=== PATIENT | female | born 1965 | race Caucasian/White ===

== ENCOUNTER 2017-12-27 15:10 | Emergency (ER) | payer OTHER ==
[2017-12-27 15:19] VITALS: BP 140/78; PULSE 71; TEMP 98.1; BMI 27.3
--- NOTE | 2017-12-27 15:21 | PDOC ---
Rapid Medical Evaluation Chief Complaint: Pain, Acute Time Seen by Provider: 12/27/17 15:21 Medical Evaluation: Allergies Allergy/AdvReac Type Severity Reaction Status Date / Time acetaminophen [From Percocet] Allergy Verified 12/27/17 15:16 codeine Allergy Verified 12/27/17 15:16 oxycodone HCl [From Percocet] Allergy Verified 12/27/17 15:16 Vital Signs Temp Pulse Resp BP Pulse Ox 98.1 F 71 18 140/78 99 12/27/17 15:16 12/27/17 15:16 12/27/17 15:16 12/27/17 15:16 12/27/17 15:16 I have performed a brief in-person evaluation of this patient. The patient presents with a chief complaint of: 3 days knee pain, denies trauma , has had knee pain but went to PT 3 days ago and pain worsened after Pertinent physical exam findings: tenderness to R posterior knee, limited ROM I have ordered the following: x-ray The patient will proceed to the ED for further evaluation. Discharge Disposition - Diagnosis Left knee pain - Referrals - Patient Instructions - Post Discharge Activity
--- NOTE | 2017-12-27 15:50 | PDOC ---
History of Present Illness - General Chief Complaint: Pain, Acute Stated Complaint: LEG PAIN Time Seen by Provider: 12/27/17 15:21 History Source: Patient Exam Limitations: No Limitations Past History - Travel Traveled outside of the country in the last 30 days: No Close contact w/someone who was outside of country & ill: No - Past Medical History Allergies/Adverse Reactions: Allergies Allergy/AdvReac Type Severity Reaction Status Date / Time acetaminophen [From Percocet] Allergy Verified 12/27/17 15:16 codeine Allergy Verified 12/27/17 15:16 oxycodone HCl [From Percocet] Allergy Verified 12/27/17 15:16 Home Medications: Ambulatory Orders Metoprolol Succinate [Toprol Xl] 50 mg PO DAILY 08/14/15 Aspirin [Adult Aspirin Regimen] 81 mg PO ASDIR 12/27/17 Ibuprofen 800 mg PO TID #30 tablet 12/27/17 COPD: No GI Disorders: Yes (gastritis) Disorders: (kidney infections,stones) HTN: Yes Hypercholesterolemia: Yes - Surgical History Abdominal Surgery: No Appendectomy: Yes - Immunization History Immunization Up to Date: Yes - Suicide/Smoking/Psychosocial Hx Smoking Status: No Smoking History: Never smoked Number of Cigarettes Smoked Daily: 0 Hx Alcohol Use: No Drug/Substance Use Hx: No Substance Use Type: None Hx Substance Use Treatment: No Review of Systems - Review of Systems Able to Perform ROS?: Yes Comments:: 12/27/17 15:49 CONSTITUTIONAL: Absent: fever, chills, diaphoresis, generalized weakness, malaise, loss of appetite HEENT: Absent: rhinorrhea, nasal congestion, throat pain, throat swelling, difficulty swallowing, mouth swelling, ear pain, eye pain, visual Changes CARDIOVASCULAR: Absent: chest pain, loss of consciousness, palpitations, irregular heart rate, peripheral edema RESPIRATORY: Absent: cough, shortness of breath, dyspnea with exertion, orthopnea, wheezing, stridor, hemoptysis GASTROINTESTINAL: Absent: abdominal pain, abdominal distension, nausea, vomiting, diarrhea, constipation, melena, hematochezia GENITOURINARY: Absent: dysuria, frequency, urgency, hesitancy, hematuria, flank pain, genital pain MUSCULOSKELETAL: Absent: myalgia, arthralgia, joint swelling SKIN: Absent: rash, itching, pallor HEMATOLOGIC/IMMUNOLOGIC: Absent: easy bleeding, easy bruising, lymphadenopathy, frequent infections ENDOCRINE: Absent: unexplained weight gain, unexplained weight loss, heat intolerance, cold intolerance NEUROLOGIC: Absent: headache, focal weakness or paresthesias, dizziness, unsteady gait, seizure, mental status changes, bladder or bowel incontinence PSYCHIATRIC: Absent: anxiety, depression, suicidal or homicidal ideation, hallucinations. Is the patient limited American proficient: No *Physical Exam - Vital Signs Last Vital Signs Temp Pulse Resp BP Pulse Ox 98.1 F 71 18 140/78 99 12/27/17 15:16 12/27/17 15:16 12/27/17 15:16 12/27/17 15:16 12/27/17 15:16 - Physical Exam Comments: 12/27/17 15:50 GENERAL: Well developed, well nourished. Awake and alert. No acute distress. HEENT: Normocephalic, atraumatic. PERRLA, EOMI. No conjunctival pallor. Sclera are non- icteric. Moist mucous membranes. Oropharynx is clear. NECK: Supple. Full ROM. No JVD. Carotid pulses 2+ and symmetric, without bruits. No thyromegaly. No lymphadenopathy. CARDIOVASCULAR: Regular rate and rhythm. No murmurs, rubs, or gallops. Distal pulses are 2+ and symmetric. PULMONARY: No evidence of respiratory distress. Lungs clear to auscultation bilaterally. No wheezing, rales or rhonchi. ABDOMINAL: Soft. Non-tender. Non-distended. No rebound or guarding. No organomegaly. Normoactive bowel sounds. MUSCULOSKELETAL Normal range of motion at all joints. No bony deformities or tenderness. No CVA tenderness. EXTREMITIES: No cyanosis. No clubbing. No edema. No calf tenderness. SKIN: Warm and dry. Normal capillary refill. No rashes. No jaundice. NEUROLOGICAL: Alert, awake, appropriate. Cranial nerves 2-12 intact. No deficits to light touch and temperature in face, upper extremities and lower extremities. No motor deficits in the in face, upper extremities and lower extremities. Normoreflexic in the upper and lower extremities. Normal speech. Toes are down- going bilaterally. Gait is normal without ataxia. PSYCHIATRIC: Cooperative. Good eye contact. Appropriate mood and affect. *DC/Admit/Observation/Transfer Diagnosis at time of Disposition: Left knee pain Qualifiers: Chronicity: acute Qualified Code(s): M25.562 - Pain in left knee - Discharge Dispostion Disposition: HOME Condition at time of disposition: Stable Admit: No - Referrals Referrals: Demarcus Hall [Primary Care Provider] - Richie Salazar MD [Staff Physician] - - Patient Instructions Printed Discharge Instructions: DI for Knee Pain Additional Instructions: You have knee pain. Your x-ray did not show any broken bones. I suspect you have a problem with one of your ligaments Please continue to take your tramadol as previously prescribed Take 800mg ibuprofen every 8 hours for the next week. Take this with food Please follow up with Dr. Salazar this week. He is an orthopedist. Return to the ED if you have worsening pain, fevers, increased swelling of the knee, or have any changes in your symptoms. Tienes dolor de rodilla Leonel winnie X no mostraron ningn hueso roto. Sospecho que tienes un problema con sarita de tus ligamentos Por favor contine tomando chavez tramadol segn lo prescrito previamente [employer] 800 mg de ibuprofeno cada 8 horas zaida la prxima semana. Cristiane esto con comida Por favor, siga con el Dr. Salazar esta semana. l es ortopedista. Regrese al departamento de emergencias si tiene un empeoramiento del dolor, fiebre, aumento de la inflamacin de la rodilla o algn cambio en leonel sntomas. - Post Discharge Activity Forms/Work/School Notes: Back to Work
== END 2017-12-27 17:03 | disposition home or self-care (01) ==
LOC: JERFT 15:10
DX: M25.562 Pain in left knee (principal); I10 Essential (primary) hypertension; Z87.442 Personal history of urinary calculi; Z87.19 Personal history of other diseases of the digestive system; Z79.82 Long term (current) use of aspirin
CPT/HCPCS: 73562-TC-LT-FY; 99281-25

== ENCOUNTER 2018-02-01 10:13 | Emergency (ER) | payer OTHER ==
[2018-02-01 10:30] VITALS: BP 142/74; PULSE 85; TEMP 98.2; BMI 28.7
--- NOTE | 2018-02-01 10:36 | PDOC ---
History of Present Illness - General Chief Complaint: Ear Problem Stated Complaint: LT EAR PAIN Time Seen by Provider: 02/01/18 10:35 History Source: Patient Exam Limitations: No Limitations - History of Present Illness Initial Comments: CHIEF COMPLAINT: 52 y/o female here for ear wax impaction of right ear. HISTORY OF PRESENT ILLNESS: Patient was seen by Dr. Hall who gave her a prescription to see an ENT specialist for right ear wax impaction. The patient came here. Denies all other complaints. Vital signs on arrival are within normal limits. REVIEW OF SYSTEMS: GENERAL/CONSTITUTIONAL: No fever/chills. HEAD, EYES, EARS, NOSE AND THROAT: No change in vision. +right ear pain and ear wax impaction. No sore throat. SKIN: No rash or easy bruising. NEUROLOGIC: No headache, vertigo, loss of consciousness, or loss of sensation. PHYSICAL EXAM: GENERAL: The patient is awake, alert, and fully oriented, in no acute distress. HEAD: Normal with no signs of trauma. ENT: Pupils equal, round and reactive to light, extraocular movements intact, sclera anicteric, conjunctiva clear. Cerumen impaction of right ear. NEUROLOGICAL: Normal speech, normal gait. CN II-XII grossly intact. SKIN: Warm, dry, normal turgor, no rashes or lesions noted. Past History - Past Medical History Allergies/Adverse Reactions: Allergies Allergy/AdvReac Type Severity Reaction Status Date / Time acetaminophen [From Percocet] Allergy Verified 02/01/18 10:25 codeine Allergy Verified 02/01/18 10:25 oxycodone HCl [From Percocet] Allergy Verified 02/01/18 10:25 Home Medications: Ambulatory Orders Metoprolol Succinate [Toprol Xl] 50 mg PO DAILY 08/14/15 Aspirin [Adult Aspirin Regimen] 81 mg PO ASDIR 12/27/17 COPD: No GI Disorders: Yes (gastritis) Disorders: (kidney infections,stones) HTN: Yes Hypercholesterolemia: Yes - Surgical History Abdominal Surgery: No Appendectomy: Yes - Immunization History Immunization Up to Date: Yes - Suicide/Smoking/Psychosocial Hx Smoking Status: No Smoking History: Never smoked Number of Cigarettes Smoked Daily: 0 Hx Alcohol Use: No Drug/Substance Use Hx: No Substance Use Type: None Hx Substance Use Treatment: No *Physical Exam - Vital Signs Last Vital Signs Temp Pulse Resp BP Pulse Ox 98.2 F 85 18 142/74 99 02/01/18 10:26 02/01/18 10:26 02/01/18 10:26 02/01/18 10:02/01/18 10:26 Medical Decision Making - Medical Decision Making A/P: 52 y/o female with right ear cerumen impaction. Used hydrogen peroxide to irrigate right ear. Very large piece of wax was removed from right ear on 2nd round of irrigation. Patient immediately felt better but slightly dizzy. She laid down in the bed for about 10 minutes and then felt better. Discharged to home to f/u with Dr. Garcia. Patient instructed to return to the ER with any worsening or concerning symptoms. The patient verbalizes understanding of all instructions, has no further questions and is awaiting discharge. *DC/Admit/Observation/Transfer Diagnosis at time of Disposition: Impacted cerumen of right ear - Discharge Dispostion Disposition: HOME Condition at time of disposition: Improved - Referrals Referrals: Demarcus Hall [Primary Care Provider] - Henry Garcia MD [Staff Physician] - 1 week - Patient Instructions Printed Discharge Instructions: DI for Cerumen Impaction Additional Instructions: Discharge Instructions: -Apply 3-5 drops of over the counter hydrogen peroxide into ears nightly to prevent build up of ear wax -Follow up with Dr. Garcia within 2 weeks for further evaluation -Return to the ER with any worsening or concerning symptoms. Instrucciones de descarga: -Aplicar de 3 a 5 gotas de perxido de hidrgeno sin receta en las orejas cada noche para evitar la acumulacin de cera -Siga con el Dr. Garcia dentro de 2 semanas para pierce evaluacin adicional -Volver a la rosalino de emergencias con cualquier empeoramiento o sntomas. Print Language: NAURUAN - Post Discharge Activity
== END 2018-02-01 11:30 | disposition home or self-care (01) ==
LOC: JERFT 10:13
PROC: 3E1B78Z Irrigation of Ear using Irrigating Substance, Via Natural or Artificial Opening (ICD-10-PCS; principal; 2018-02-01)
PROC: 3E1B78Z Irrigation of Ear using Irrigating Substance, Via Natural or Artificial Opening (ICD-10-PCS; 2018-02-01)
DX: H61.21 Impacted cerumen, right ear (principal); I10 Essential (primary) hypertension
CPT/HCPCS: 69209; 99281-25

== ENCOUNTER 2018-10-04 22:19 | Emergency (ER) | payer OTHER ==
[2018-10-04 22:23] VITALS: BP 124/63; PULSE 92; TEMP 98.6; BMI 27.3
--- NOTE | 2018-10-04 22:57 | PDOC ---
Attending Attestation - HPI HPI: 10/04/18 23:02 The patient is a 53-year-old female with a past medical history significant for HTN, GERD and NIDDM presents to the emergency department with nausea and abdominal bloating. The patient reports at 2:00 pm today she was eating a toast with pineapple juice, when a sudden onset of sharp diffuse abdominal pain presented, followed by an episode of NBNB emesis. The patient reports the abdominal pain is achy and inflamed in quality and is diffused across the abdomen, denies radiation to the chest or neck. The patient reports associated symptoms of dysuria, diarrhea, and subjective fever, denies hematuria, frequency or urgency to urinate. The patient reports a similar pain about 3 months prior. The patient reports her last BM was earlier today. Allergies: codeine and oxycodone HCl Social history: None reported Surgical history: Appendectomy PCP: Dr. Claudia Hall. - Physicial Exam PE: 10/04/18 23:47 GENERAL: Awake, alert, and fully oriented, in no acute distress HEAD: No signs of trauma EYES: PERRLA, EOMI, sclera anicteric, conjunctiva clear ENT: Auricles normal inspection, hearing grossly normal, nares patent, oropharynx clear without exudates. Moist mucosa. NECK: Normal ROM, supple, no lymphadenopathy, JVD, or masses LUNGS: Breath sounds equal, clear to auscultation bilaterally. No wheezes, and no crackles HEART: Regular rate and rhythm, normal S1 and S2, no murmurs, rubs or gallops ABDOMEN: +Central epigastric pain to tenderness. No flank pain. Soft, normoactive bowel sounds. No guarding, no rebound. No masses EXTREMITIES: Normal range of motion, no edema. No clubbing or cyanosis. No cords, erythema, or tenderness NEUROLOGICAL: Cranial nerves II through XII grossly intact. Normal speech. SKIN: Warm, Dry, normal turgor, no rashes or lesions noted. - Medical Decision Making 10/04/18 22:59 Documentation prepared by Jada Singer, acting as medical officer for Odette Valladares MD. <Jada Singer - Last Filed: 10/04/18 23:47> - Resident Resident Name: Hannah Lewis - ED Attending Attestation I have performed the following: I have examined & evaluated the patient, The case was reviewed & discussed with the resident, I agree w/resident's findings & plan - Medical Decision Making 10/05/18 00:31 Pt's CBC is normal.Exam normal. Vitals normal. 10/05/18 00:34 EKG pending; CXR pending 10/05/18 01:12 EKG normal; chem/cardiac normal 10/05/18 06:29 CXR normal; EKG normal 10/05/18 06:30 UA is a contaminated specimen <Odette Valladares - Last Filed: 10/05/18 06:31>
[2018-10-04] MEDS ORDERED: FAMOTIDINE 20 MG/50 ML IVPB 20 MG/50 ML MG IVPB ONE ×3 (23:10→23:38)
[2018-10-04] MEDS ORDERED: MAG HYDROX/AL HYDROX/SIMETH -MYLANTA- ORAL SUSPENSION PO ONE (23:10)
[2018-10-04] MEDS ORDERED: SODIUM CHLORIDE 0.9% 500 ML INFUS.BAG IV ONE (23:10)
[2018-10-04] MEDS ORDERED: ONDANSETRON 4 MG/2 ML VIAL IVPUSH ONE (23:13)
--- NOTE | 2018-10-04 23:14 | PDOC ---
History of Present Illness - General Chief Complaint: Nausea/Vomiting Stated Complaint: VOMITING Time Seen by Provider: 10/04/18 22:50 - History of Present Illness Initial Comments: 10/04/18 23:09 The patient is a 53 year old female with a PMH of NIDDM, HTN, GERD who presents to our ED c/o nausea and abdominal bloating. Patient states she ate a piece of toast today at 2 pm and felt a sharp abdominal cramp and vomited. Had eaten this bread yesterday without incident. Now c/o abdominal bloating and nausea w/ o pain. ROS positive for dysuria w/o hematuria. No h/o cardiac evaluation. No known familial cardiac history. The patient denies chest pain, shortness of breath, headache, numbness/tingling , recent travel and sick contacts. Allergy: Codeine, Percocet Surgery: C/S x2, Ovarian cyst removal Social: denies toxic habits PMD: Dr. Demarcus Hall As per EMR, patient previously evaluated for similar symptoms in 2018 at which time GB U/S was negative for cholecystitis/cholelithiasis and patient was discharged home with symptomatic are. Past History - Past Medical History Allergies/Adverse Reactions: Allergies Allergy/AdvReac Type Severity Reaction Status Date / Time codeine Allergy Verified 10/04/18 22:23 oxycodone HCl [From Percocet] Allergy Verified 10/04/18 22:23 Home Medications: Ambulatory Orders Metoprolol Succinate [Toprol Xl] 50 mg PO DAILY 08/14/15 Aspirin [Adult Aspirin Regimen] 81 mg PO ASDIR 12/27/17 Lisinopril 10 mg PO DAILY 04/20/18 Metoprolol Succinate [Toprol XL -] 50 mg PO DAILY #14 tablet 05/19/18 COPD: No GI Disorders: Yes (gastritis) Disorders: (kidney infections,stones) HTN: Yes Hypercholesterolemia: Yes - Surgical History Abdominal Surgery: No Appendectomy: Yes - Immunization History Immunization Up to Date: Yes - Suicide/Smoking/Psychosocial Hx Smoking Status: No Smoking History: Never smoked Number of Cigarettes Smoked Daily: 0 Hx Alcohol Use: No Drug/Substance Use Hx: No Substance Use Type: None Hx Substance Use Treatment: No Review of Systems - Review of Systems Constitutional: No: Chills, Fever HEENTM: No: Recent change in vision Respiratory: No: Cough, Shortness of Breath Cardiac (ROS): No: Chest Pain, Lightheadedness, Palpitations ABD/GI: Yes: Abdominal Distended, Nausea, Vomiting. No: Constipated, Diarrhea : Yes: Dysuria. No: Burning *Physical Exam - Vital Signs Last Vital Signs Temp Pulse Resp BP Pulse Ox 98.6 F 92 H 18 124/63 98 10/04/18 22:21 10/04/18 22:21 10/04/18 22:21 10/04/18 22:21 10/04/18 22:21 - Physical Exam General Appearance: Yes: Nourished, Obese HEENT: positive: Normal Voice, Hearing Grossly Normal Neck: positive: Trachea midline, Supple Respiratory/Chest: positive: Lungs Clear, Normal Breath Sounds. negative: Labored Respiration, Rapid RR Cardiovascular: positive: S1, S2. negative: Edema, JVD, Murmur Gastrointestinal/Abdominal: positive: Normal Bowel Sounds, Soft. negative: Distended, Guarding, Rebound, Tenderness, Hernia, Mass Musculoskeletal: negative: CVA Tenderness (R), CVA Tenderness (L) Extremity: positive: Normal Capillary Refill, Normal Inspection Integumentary: positive: Normal Color, Dry, Warm Neurologic: positive: Fully Oriented, Alert Moderate Sedation - Procedure Monitoring Vital Signs: Procedure Monitoring Vital Signs Temperature 98.6 F 10/04/18 22:21 Pulse Rate 92 H 10/04/18 22:21 Respiratory Rate 18 10/04/18 22:21 Blood Pressure 124/63 10/04/18 22:21 O2 Sat by Pulse Oximetry (%) 98 10/04/18 22:21 Medical Decision Making - Medical Decision Making 10/04/18 23:17 53 year old female who presents for nausea, solo episode of emesis and abdominal bloating as well as dysuria. VS unremarkable. DDx includes cystitis, gastritis, GERD as well as acute abdomen (including early appy and cholecystitis ) and r/o ACS (less likely) Given the patient's clinical presentation and benign physical exam suspect cystitis vs. gastritis. Will obtain CBC, CMP and UA/Urine Cx as well as Troponin x1. GI cocktail, IV fluids. Reassess. 10/04/18 23:51 Patient signed out to Dr. Hassan (Resident) and Dr. Valladares (Attending) - labs including Troponin and EKG pending. *DC/Admit/Observation/Transfer Diagnosis at time of Disposition: Nausea - Referrals Referrals: Demarcus Hall [Primary Care Provider] - - Patient Instructions - Post Discharge Activity
[2018-10-04] MEDS ORDERED: ONDANSETRON 4 MG/2 ML VIAL ONE (23:35)
[2018-10-04] MEDS ORDERED: MAG HYDROX/AL HYDROX/SIMETH 30 ML UNIT-DOSE CUP ONE (23:35)
[2018-10-05 00:12] LABS: BASO % 0.3 % (0-2.0); EOS % 0.7 % (0-4.5); HEMATOCRIT 35.5 % (32.4-45.2); HEMOGLOBIN 12.7 GM/dL (10.7-15.3); MCH 33.4 pg (25.7-33.7); MCHC 35.7 g/dl (32.0-36.0); MEAN CELL VOLUME 93.6 fl (80-96); MEAN PLT VOLUME 7.3 fl (7.5-11.1); MONO % 3.6 % (3.8-10.2); NEUT % 88.4 % (42.8-82.8); PLATELET COUNT 302 K/MM3 (134-434); RBC 3.79 M/mm3 (3.60-5.2); WHITE BLOOD COUNT 6.9 K/mm3 (4.0-10.0)
[2018-10-05 01:01] LABS: ALBUMIN 4.2 g/dl (3.4-5.0); ALK PHOS 103 U/L (45-117); ANION GAP 6 MMOL/L (8-16); BILIRUBIN,TOTAL 0.7 mg/dL (0.2-1); BLOOD UREA NITROGEN 21 mg/dL (7-18); CALCIUM 9.1 mg/dL (8.5-10.1); CHLORIDE 104 mmol/L (98-107); CO2 28 mmol/L (21-32); CREATININE 1.1 mg/dL (0.55-1.3); GLUCOSE,RANDOM 127 mg/dL (74-106); POTASSIUM 4.6 mmol/L (3.5-5.1); SGOT/AST 16 U/L (15-37); SGPT/ALT 31 U/L (13-61); SODIUM 137 mmol/L (136-145); TOT PROT 8.9 g/dl (6.4-8.2)
--- NOTE | 2018-10-05 01:17 | PDOC ---
*Physical Exam - Vital Signs Last Vital Signs Temp Pulse Resp BP Pulse Ox 98.6 F 92 H 18 124/63 98 10/04/18 22:21 10/04/18 22:21 10/04/18 22:21 10/04/18 22:21 10/04/18 22:21 ED Treatment Course - LABORATORY CBC & Chemistry Diagram: 10/05/18 00:06 10/05/18 00:06 - ADDITIONAL ORDERS Additional order review: Laboratory Results 10/05/18 10/05/18 00:06 00:06 Sodium 137 Potassium 4.6 Chloride 104 Carbon Dioxide 28 Anion Gap 6 L BUN 21 H Creatinine 1.1 Creat Clearance w eGFR 51.57 Random Glucose 127 H Calcium 9.1 Total Bilirubin 0.7 AST 16 ALT 31 Alkaline Phosphatase 103 Creatine Kinase 102 Troponin I < 0.02 Total Protein 8.9 H Albumin 4.2 10/05/18 00:06 RBC 3.79 MCV 93.6 MCHC 35.7 RDW 13.0 MPV 7.3 L Neutrophils % 88.4 H D Lymphocytes % 7.0 L D Monocytes % 3.6 L Eosinophils % 0.7 D Basophils % 0.3 - Medications Given in the ED: ED Medications Discontinued Medications Generic Name Dose Route Start Last Admin Trade Name Freq PRN Reason Stop Dose Admin Al Hydroxide/Mg Hydroxide 30 ml 10/04/18 23:10 10/05/18 00:42 Mylanta Suspension - PO 10/04/18 23:11 30 ml ONCE ONE Administration Famotidine/Sodium Chloride 20 mg in 50 mls @ 100 mls/hr 10/04/18 23:10 00:43 Pepcid 20 Mg Premixed Ivpb - IVPB 10/04/18 23:39 100 mls/hr ONCE ONE Administration Ondansetron HCl 4 mg 10/04/18 23:13 10/05/18 00:43 Zofran Injection IVPUSH 10/04/18 23:14 4 mg ONCE ONE Administration Sodium Chloride 1,000 ml 10/04/18 23:10 10/05/18 00:43 Normal Saline - IV 10/04/18 23:11 1,000 ml ONCE ONE Administration Medical Decision Making - Medical Decision Making EKG showed NSR. Labs were unremarkable, troponin negative. Symptoms have resolved. Will discharge. 10/05/18 01:12 *DC/Admit/Observation/Transfer Diagnosis at time of Disposition: Viral gastroenteritis - Discharge Dispostion Disposition: HOME Condition at time of disposition: Stable - Referrals Referrals: Demarcus Hall [Primary Care Provider] - - Patient Instructions Printed Discharge Instructions: DI for Viral Gastroenteritis -- Adult Additional Instructions: You were treated for nausea, vomiting, and abdominal bloating. Your symptoms resolved with medication. Your labs and EKG were all normal. The presumptive diagnosis is viral gastroenteritis. Please return to the Emergency Department if you develop any chest pain, shortness of breath, significant new or any bloody vomiting, blood in your stool, loss of consciousness, or any new or concerning symptom. - Post Discharge Activity
[2018-10-05 01:26] LABS: URINE APPEARANCE CLEAR; URINE BILIRUBIN NEGATIVE (<2.0 mg/dL); URINE COLOR STRAW; URINE GLUCOSE (UA) NEGATIVE (NEGATIVE); URINE KETONE NEGATIVE (NEGATIVE); URINE LEUK ESTERASE TRACE (NEGATIVE); URINE NITRITE NEGATIVE (NEGATIVE); URINE PROTEIN NEGATIVE (NEGATIVE); URINE UROBILINOGEN NEGATIVE mg/dL (0.2-1.0)
[2018-10-05 01:37] LABS: EPI CELLS MODERATE /HPF (FEW); URINE BACTERIA MANY /hpf (NONE SEEN); URINE MUCUS RARE
--- NOTE | 2018-10-05 12:58 | EKG ---
Test Reason : Blood Pressure : / mmHG Vent. Rate : 076 BPM Atrial Rate : 076 BPM P-R Int : 180 ms QRS Dur : 084 ms QT Int : 376 ms P-R-T Axes : 044 031 032 degrees QTc Int : 423 ms NORMAL SINUS RHYTHM CANNOT RULE OUT INFERIOR INFARCT , AGE UNDETERMINED Confirmed by NAVEED GILMORE MD ([id number]) on 10/05/2018 12:58:38 PM Referred By: Confirmed By:NAVEED GILMORE MD
== END 2018-10-05 01:33 | disposition home or self-care (01) ==
LOC: JER 22:19
PROC: 3E033GC Introduction of Other Therapeutic Substance into Peripheral Vein, Percutaneous Approach (ICD-10-PCS; principal; 2018-10-04)
PROC: 3E033GC Introduction of Other Therapeutic Substance into Peripheral Vein, Percutaneous Approach (ICD-10-PCS; 2018-10-04)
DX: A08.4 Viral intestinal infection, unspecified (principal); B97.89 Other viral agents as the cause of diseases classified elsewhere; I10 Essential (primary) hypertension; E11.9 Type 2 diabetes mellitus without complications; Z79.84 Long term (current) use of oral hypoglycemic drugs; E78.00 Pure hypercholesterolemia, unspecified; Z87.448 Personal history of other diseases of urinary system
CPT/HCPCS: 36415; 81003; 81015; 85025; 87086; 87186; 93005; 93010; 96365; 96375; 99283-25

== ENCOUNTER 2020-11-14 19:50 | Emergency (ER) | payer OTHER ==
[2020-11-14 20:03] VITALS: TEMP 98.5; BMI 29.8
[2020-11-14] MEDS ORDERED: MAG HYDROX/AL HYDROX/SIMETH 30 ML UNIT-DOSE CUP PO ONE (20:42)
[2020-11-14] MEDS ORDERED: ACETAMINOPHEN 1000 MG/100 ML VIAL (NON FORMULARY) IVPB ONE (20:42)
[2020-11-14] MEDS ORDERED: FAMOTIDINE 20 MG/50 ML IVPB 20 MG/50 ML MG IVPB ONE (20:42)
[2020-11-14 20:46] LABS: EOS % 0.7 % (0-4.5); HEMATOCRIT 35.8 % (32.4-45.2); HEMOGLOBIN 12.1 GM/dL (10.7-15.3); LYMPH % 44.5 % (8-40); MCH 31.5 pg (25.7-33.7); MCHC 33.8 g/dl (32.0-36.0); MEAN PLT VOLUME 7.6 fl (7.5-11.1); MONO % 7.3 % (3.8-10.2); NEUT % 46.5 % (42.8-82.8); PLATELET COUNT 395 K/MM3 (134-434); RBC 3.85 M/mm3 (3.60-5.2); RDW 13.5 % (11.6-15.6); WHITE BLOOD COUNT 9.1 K/mm3 (4.0-10.0)
[2020-11-14] MEDS ORDERED: MAG HYDROX/AL HYDROX/SIMETH 30 ML UNIT-DOSE CUP ONE (20:47)
[2020-11-14] MEDS ORDERED: ACETAMINOPHEN INJECTION 100 ML IVPB ONE (20:47)
[2020-11-14] MEDS ORDERED: SIMETHICONE 80 MG TAB.CHEW (FP) PO ONE (20:52)
[2020-11-14 21:05] LABS: CHLORIDE 105 mmol/L (98-107); SODIUM 136 mmol/L (136-145)
[2020-11-14 21:07] LABS: ALBUMIN 3.8 g/dl (3.4-5.0); ANION GAP 5 MMOL/L (8-16); CALCIUM 8.9 mg/dL (8.5-10.1); CO2 27 mmol/L (21-32)
[2020-11-14 21:08] LABS: BLOOD UREA NITROGEN 22.6 mg/dL (7-18); GLUCOSE,RANDOM 87 mg/dL (74-106); LIPASE 292 U/L (73-393)
[2020-11-14 21:10] LABS: CREATININE 1.1 mg/dL (0.55-1.3); SGOT/AST 13 U/L (15-37); SGPT/ALT 25 U/L (13-61)
[2020-11-14 21:12] LABS: BILIRUBIN,TOTAL 0.6 mg/dL (0.2-1); TOT PROT 7.6 g/dl (6.4-8.2)
[2020-11-14 21:13] LABS: ALK PHOS 82 U/L (45-117)
[2020-11-14 23:47] VITALS: BP 122/75; PULSE 64
== END 2020-11-14 23:47 | disposition home or self-care (01) ==
LOC: JER 19:50
PROC: 3E0333Z Introduction of Anti-inflammatory into Peripheral Vein, Percutaneous Approach (ICD-10-PCS; principal; 2020-11-14)
PROC: 3E033GC Introduction of Other Therapeutic Substance into Peripheral Vein, Percutaneous Approach (ICD-10-PCS; 2020-11-14)
DX: R14.0 Abdominal distension (gaseous) (principal); R06.02 Shortness of breath
CPT/HCPCS: 36415; 71046-TC-FY; 80053; 82550; 83690; 84484; 85025; 93005; 93010; 99285-25; J0131

== ENCOUNTER 2022-01-09 19:48 | Emergency (ER) | payer OTHER ==
[2022-01-09 20:31] VITALS: BP 106/65; PULSE 89; TEMP 98.9; BMI 33.0
[2022-01-09] MEDS ORDERED: ONDANSETRON 4 MG/2 ML VIAL IVPUSH ONE (21:41)
[2022-01-09] MEDS ORDERED: ACETAMINOPHEN 1000 MG/100 ML BAG IVPB ONE (21:41)
[2022-01-09] MEDS ORDERED: MAG HYDROX/AL HYDROX/SIMETH 30 ML UNIT-DOSE CUP PO ONE (21:41)
[2022-01-09] MEDS ORDERED: SODIUM CHLORIDE 0.9% 500 ML INFUS.BAG IV ONE (21:41)
[2022-01-09] MEDS ORDERED: ONDANSETRON 4 MG/2 ML VIAL ONE (21:51)
[2022-01-09] MEDS ORDERED: ACETAMINOPHEN INJECTION 100 ML IVPB ONE (21:51)
[2022-01-09] MEDS ORDERED: MAG HYDROX/AL HYDROX/SIMETH 30 ML UNIT-DOSE CUP ONE (21:51)
[2022-01-09 22:49] LABS: BASO % 0.3 % (0-2.0); EOS % 1.1 % (0-4.5); HEMOGLOBIN 12.5 GM/dL (10.7-15.3); MCH 31.3 pg (25.7-33.7); MCHC 33.8 g/dl (32.0-36.0); MEAN CELL VOLUME 92.5 fl (80-96); MEAN PLT VOLUME 6.8 fl (7.5-11.1); MONO % 9.3 % (3.8-10.2); NEUT % 51.3 % (42.8-82.8); PLATELET COUNT 382 10^3/uL (134-434); RDW 13.8 % (11.6-15.6); WHITE BLOOD COUNT 6.2 K/mm3 (4.0-10.0)
[2022-01-09 23:17] LABS: CALCIUM 8.3 mg/dL (8.5-10.1)
[2022-01-09 23:18] LABS: ALBUMIN 3.5 g/dl (3.4-5.0); BLOOD UREA NITROGEN 28.6 mg/dL (7-18); MAGNESIUM 2.2 mg/dL (1.8-2.4)
[2022-01-09 23:21] LABS: CREATININE 1.6 mg/dL (0.55-1.3)
[2022-01-09 23:22] LABS: BILIRUBIN,TOTAL 0.5 mg/dL (0.2-1); TOT PROT 7.5 g/dl (6.4-8.2)
== END 2022-01-10 00:38 | disposition home or self-care (01) ==
LOC: JER 19:48
PROC: 3E0333Z Introduction of Anti-inflammatory into Peripheral Vein, Percutaneous Approach (ICD-10-PCS; principal; 2022-01-09)
PROC: 3E033GC Introduction of Other Therapeutic Substance into Peripheral Vein, Percutaneous Approach (ICD-10-PCS; 2022-01-09)
DX: R19.7 Diarrhea, unspecified (principal)
CPT/HCPCS: 36415; 80053; 83690; 83735; 85025; 87804; 93005; 93010; 99284-25

== ENCOUNTER 2022-07-29 12:21 | Emergency (ER) | payer OTHER ==
[2022-07-29 12:36] VITALS: BP 122/62; PULSE 76; RESP 18; TEMP 98.2; BMI 29.2
== END 2022-07-29 14:54 | disposition home or self-care (01) ==
LOC: JERFT 12:21
DX: H61.21 Impacted cerumen, right ear (principal)
CPT/HCPCS: 99281-25